=== PATIENT | female | born 2000 | race Caucasian/White ===

== ENCOUNTER 2024-05-02 21:27 | Emergency (ER) | payer BC ==
[~2024-05-02] VITALS: Ht 162.6 cm; Wt 63.6 kg
[2024-05-02 21:41] VITALS: TEMP 98.3
[2024-05-02] MEDS ORDERED: Famotidine 20 MG TAB PO ONE (22:15)
[2024-05-02] MEDS ORDERED: dexAMETHasone 10 MG/ML VIAL PO ONE (22:15)
[2024-05-02 22:57] VITALS: BP 124/90; PULSE 89
== END 2024-05-02 22:57 | disposition home or self-care (01) ==
LOC: COL.ER 21:27
DX: T78.40XA Allergy, unspecified, initial encounter (principal); X58.XXXA Exposure to other specified factors, initial encounter
CPT/HCPCS: J1100